=== PATIENT | female | born 1960 | race Caucasian/White ===

== ENCOUNTER → 2016-09-29 | Outpatient (CLI) | payer BC, MEDICARE ==
[~2016-09-29] MED LIST: ASPIRIN EC81 MG PO; COZAAR50 MG PO; DELTASONE10 MG PO; DUONEB INH; FLONASE 50 MCG/16 GM NOSE; GLUCOPHAGE850 MG PO; LEVOTHROID (S125 MCG PO; LORAZEPAM0.5 MG PO; OXYGEN M-15 INH; PROTONIX40 MG PO; PULMICORT0.5 MG/21 INH; VENLAFAXINE H37.5 MG PO; VITAMIN B-121000 MCG PO; XANAX0.5 MG PO; ZOCOR40 MG PO
--- NOTE | ~2016-09-29 | OR ---
PATIENT'S NAME: RUBÉN SHAH [facility] AGE: 56 Y [address] ROOM: [place] [address] LOCATION: [facility] ADMIT DATE: 09/29/2016 OR/Procedure Report DISCHARGE DATE: FAMILY PHYSICIAN: Urvashi Bourgeois APRN ATTENDING PHYSICIAN: MIRNA MICHELLE SURGEON: Mirna Michelle MD CONTENT WRITER: DATE OF PROCEDURE: 09/29/[address] ANGIOGRAM REPORT INDICATIONS FOR PROCEDURE: Dyspnea, chest pain. DESCRIPTION OF PROCEDURE: The procedure was discussed with the patient and informed consent was obtained. Coronary calcium score assessment was performed. Following this, coronary CT angiogram was performed. The patient was given a total of 100 mL of Isovue 370 as a contrast agent. FINDINGS: Calcium score assessment. The total calcium score is 346. The calcium score in the right coronary artery is 253, left anterior descending artery is 90, circumflex coronary artery is 3. CT ANGIOGRAM FINDINGS: The left main coronary artery arises from the left coronary cusp. No significant disease was noted in the left main coronary artery. The left main coronary artery gives rise to left anterior descending artery and circumflex coronary arteries. The left anterior descending artery is a moderate caliber vessel and it gives rise to one large diagonal branch. The mid left anterior descending artery has a calcified plaque, which causes 25% to 50% luminal narrowing. The distal left anterior descending artery has small calcified plaque less than 25% stenosis. The left anterior descending artery gives rise to one large diagonal branch with no significant disease. The circumflex coronary artery is a large caliber vessel and it gives to one major obtuse marginal branch. No significant disease was noted in the circumflex coronary artery and obtuse marginal branch. The right coronary artery arises from the coronary cusp and it is a large caliber dominant vessel. Proximal right coronary artery has calcified plaque, which causes less than 25% luminal stenosis. Mid right coronary artery has mixed plaque, which causes 25% to 50% luminal stenosis. Distal right coronary artery has no significant disease. The right coronary artery divides into posterior descending artery and PLV branches, which showed no significant disease. The ascending aorta measures 31 x 30 mm and descending thoracic aorta measures 20 x 19 mm at the level of pulmonary artery bifurcation and is within normal limits. The noncardiac findings will be reported by the radiologist. CONCLUSIONS: PATIENT'S NAME: RUBÉN SHAH [facility] AGE: 56 Y [address] ROOM: [place] [address] LOCATION: [facility] ADMIT DATE: 09/29/2016 OR/Procedure Report DISCHARGE DATE: FAMILY PHYSICIAN: Urvashi Bourgeois APRN ATTENDING PHYSICIAN: MIRNA MICHELLE 1. The total calcium score is 346. 2. Nonobstructive coronary artery disease as described above. Recommend aggressive coronary artery disease risk factor modification. MD MIRELLA IRIZARRY/stefani /[id number] d: 09/30/16 0059 t: 10/18/16 194, OPERATIVE SUMMARY
== END | disposition disaster alternative care site (69) ==
LOC: GPOC 09-25 11:00 → GOPP 10:00 → GRAD 11:00
DX: R07.9 Chest pain, unspecified (principal); K44.9 Diaphragmatic hernia without obstruction or gangrene
CPT/HCPCS: Q9967

== ENCOUNTER → 2016-10-30 | Outpatient (CLI) | payer BC, MEDICARE ==
--- NOTE | ~2016-10-30 | PUL ---
PATIENT'S NAME: RUBÉN SHAH [facility] AGE: 56 Y [address] ROOM: [place] [address] LOCATION: [facility] ADMIT DATE: 10/30/2016 Pulmonary DISCHARGE DATE: FAMILY PHYSICIAN: Uravshi Bourgeois APRN ATTENDING PHYSICIAN: MILES DELGADO NAME OF PROCEDURE: Pulmonary Function Test DATE OF PROCEDURE: October 30, 2016 TECH: HENRI Jara REASON FOR EXAM: COPD RESULTS: 1. FVC was 1.44 liters which is 42% of predicted and low, FEV1 was 0.58 liters which is 22% of predicted and low, and FEV1/FVC was 40% and low. The flow volume curve revealed significant airflow limitation. After bronchodilator administration FVC increased to 1.81 liters which is a 26% increase and FEV1 increased to 0.78 liters which is a 35% increase. FEV1/FVC was 54%. 2. DLCO was 6.2 with an adjusted DLCO of 6.3 which is 28% of predicted and low. 3. Total lung capacity was 5.13 liters which is 104% of predicted and normal, and residual volume was 3.42 liters which is 188% of predicted and high. PHYSICIAN INTERPRETATION: The patient has very severe airflow limitation with a significant bronchodilator response. Her diffusion capacity is severely low. There is evidence of air trapping on the lung volumes. MD ROQUE CARRIZALES/norman /[id number] dtt: 11/02/16 1213 , MARIUM GAXIOLA dtd: 11/02/16 1144
== END | disposition disaster alternative care site (69) ==
LOC: GRTH 10:34
DX: J44.9 Chronic obstructive pulmonary disease, unspecified (principal)